=== PATIENT | male | born 1960 | race Caucasian/White ===

== ENCOUNTER 2021-09-16 07:37 | Inpatient (IN) | payer OTHER ==
[~2021-09-16] VITALS: Ht 177.8 cm; Wt 72.2 kg
[2021-09-16 08:11] LABS: INR 1.3 (0.9-1.2); PROTHROMBIN TIME 15.5 SECONDS (11.8-13.4); PTT 24.1 SECONDS (24.4-34.7)
[2021-09-16 08:21] LABS: ALBUMIN 4.1 g/dL (3.4-5.0); BILIRUBIN - TOTAL 1.2 mg/dL (0.2-1.0); BUN/CREAT RATIO (CALC) 22.2 RATIO; CREATININE 0.45 mg/dL (0.67-1.17); GLOBULIN (CALCULATION) 2.8 g/dL; POTASSIUM 3.7 mmol/L (3.5-5.1); TOTAL PROTEIN 6.9 g/dL (6.4-8.2)
[2021-09-16 08:29] LABS: BASOPHIL 0.2 % (0-2); EOSINOPHIL 0 % (0-5); HCT 37.7 % (42.0-52.0); HGB 13.4 g/dl (13.2-18.0); LYMPHOCYTE 4.8 % (15-48); MCH 33.3 pg (25.0-31.0); MCHC 35.5 g/dL (32.0-36.0); MCV 93.8 fL (78.0-100.0); MONOCYTE 6.6 % (0-12); NEUTROPHIL 87.7 % (41-80); NRBC 0; PLT 163 K/uL (150-400); RBC 4.02 M/uL (4.70-6.00); RDW 12.6 % (11.5-14.0)
[2021-09-16 09:09] LABS: LACTIC ACID 6.3 mmol/L (0.4-1.9)
[2021-09-16 09:51] LABS: BILIRUBIN 1+ mg/dL (NEGATIVE); BLOOD 2+ Ery/uL (NEGATIVE); CLARITY CLEAR (CLEAR); COLOR YELLOW (YELLOW); GLUCOSE (U) NORMAL (NORMAL); LEUKOCYTES NEGATIVE Leu/uL (NEGATIVE); NITRITE NEGATIVE (NEGATIVE); PROTEIN 2+ mg/dL (NEGATIVE); SPECIFIC GRAVITY 1.025 (1.001-1.030)
[2021-09-16 09:57] LABS: AMPHETAMINES NEGATIVE (NEGATIVE); BARBITURATES NEGATIVE (NEGATIVE); ECSTASY (MDMA) NEGATIVE (NEGATIVE); MARIJUANA (THC) NEGATIVE (NEGATIVE); METHADONE NEGATIVE (NEGATIVE); OPIATES NEGATIVE (NEGATIVE); OXYCODONE NEGATIVE (NEGATIVE)
[2021-09-16 10:18] LABS: MUCOUS TRACE
--- NOTE | 2021-09-16 13:08 | NUR ---
RECEIVED FROM ER VIA STRETCHED. AMBULTED TO BED. ASSESSMENT DONE
[2021-09-16] MEDS ORDERED: MINOCYCLINE HC100 MG PO (17:09)
[2021-09-16] MEDS ORDERED: CITALOPRAM HBR20 MG PO (17:11)
[2021-09-16] MEDS ORDERED: DRIZALMA SPRINK40 MG PO (17:12)
[2021-09-16] MEDS ORDERED: MELOXICAM15 MG PO (17:13)
[2021-09-16] MEDS ORDERED: CLONAZEPAM1 MG PO ×2 (17:16)
[2021-09-16] MEDS ORDERED: ATENOLOL25 MG PO (17:18)
[2021-09-16] MEDS ORDERED: LYRICA 50MG CAP50 MG PO (17:18)
[2021-09-16] MEDS ORDERED: NORTRIPTYLINE H10 MG PO (17:21)
[2021-09-16] MEDS ORDERED: HYZAAR 50-12.51 EACH PO (17:23)
[2021-09-17 05:09] LABS: HBSAG SCREEN Negative (Negative); HEP A AB, IGM Negative (Negative); HEP B CORE AB, IGM Negative (Negative); HEP C VIRUS AB <0.1 (0.0-0.9)
== END 2021-09-17 10:00 | disposition home or self-care (01) | DRG 433 ==
LOC: FER 07:37 → FMS 10:41
PROVIDERS: Emergency Medicine; ADMIT Internal Medicine
DX: K70.10 Alcoholic hepatitis without ascites (principal); E87.2 Acidosis; F10.120 Alcohol abuse with intoxication, uncomplicated; K76.0 Fatty (change of) liver, not elsewhere classified; Z20.822 Contact with and (suspected) exposure to COVID-19; I10 Essential (primary) hypertension; F32.9 Major depressive disorder, single episode, unspecified; F41.0 Panic disorder [episodic paroxysmal anxiety]; F17.200 Nicotine dependence, unspecified, uncomplicated; K83.8 Other specified diseases of biliary tract; E86.0 Dehydration; G40.909 Epilepsy, unspecified, not intractable, without status epilepticus; Z84.89 Family history of other specified conditions; Y90.6 Blood alcohol level of 120-199 mg/100 ml
CPT/HCPCS: 36415; 76705; 78226; 80053; 80074; 80305; 81001; 82150; 83605; 83690; 84145; 85025; 85610; 85730; 87040; 87088; 93005; 94010; A9537; C9113; G0480; J1885; J2405; J2543; J7030; J7120; U0002